=== PATIENT | female | born 2000 | race Caucasian/White ===

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

== ENCOUNTER 2022-05-20 19:44 | Emergency (ER) | payer OTHER ==
[~2022-05-20] VITALS: Ht 162.6 cm; Wt 59.0 kg
[~2022-05-20 19:44] MED LIST changes: +Floxin10 ML LEFTEAR; +IBUP800 PO; +PRENATAL TABLE1 EAC2 PO; +SERT100
== END 2022-05-20 21:05 | disposition home or self-care (01) ==
LOC: ER 19:44
DX: L02.424 Furuncle of left upper limb (principal)
CPT/HCPCS: 10060; 99282-25